=== PATIENT | male | born 1970 | race Caucasian/White ===

== ENCOUNTER 2024-12-21 02:34 | Emergency (ER) | payer BC ==
[2024-12-21] MEDS ORDERED: ONDANSETRON 4 MG/2 ML VIAL ONE (03:23)
[2024-12-21] MEDS ORDERED: MORPHINE 4 MG/ML SYR ONE ×2 (03:24→06:40)
[2024-12-21] MEDS ORDERED: NA CHLORIDE 0.9% 1,000 ML ONE (03:24)
[2024-12-21 04:13] LABS: Absolute Basophils 0.1 K/uL (0-0.5); Absolute Eosinophils 0.7 K/uL (0-0.5); Absolute Monocytes 0.8 K/uL (0.1-1.3); Absolute Neutrophil 4.3 K/uL (1.8-8.0); Hematocrit 41.8 % (39.6-49.0); Hemoglobin 15.3 g/dL (13.6-17.9); Lymphocytes % 25.2 % (15.3-44.8); MCH 32.9 pg (27.0-35.0); MCHC 36.5 g/dL (32.0-36.0); MCV 90.1 fL (80-100); MPV 8.8 fL (7.6-11.3); Monocytes % 9.9 % (3.3-12.3); Neutrophils % 54.9 % (41.7-73.7); Nucleated Red Blood Cells % 0.1 % (0-0); PT Prothrombin Time 11.2 SECONDS (10-13.0); Platelets 177 thou/uL (152-406); Protime INR 0.98; RBC Red Blood Cell Count 4.64 M/uL (4.33-5.43); Red Cell Distribution Width 13.1 % (12.1-15.2)
[2024-12-21 04:38] LABS: Albumin 3.6 g/dL (3.4-5.0); Albumin/Globulin Ratio 1.3 (1.1-1.8); Anion Gap 11.4 mEq/L (5.0-15.0); Bilirubin Direct 0.3 mg/dL (0-0.2); Bilirubin Indirect, Calculated 0.2 mg/dL (0.2-0.8); Bilirubin Total 0.5 mg/dL (0.2-1.0); Globulin 2.8 g/dL (2.3-3.5); Magnesium 2.1 mg/dL (1.6-2.4); Potassium 3.4 mEq/L (3.5-5.1); Protein, Total 6.4 g/dL (6.4-8.2); Thyroid Stimulating Hormone 2.39 uIU/mL (0.358-3.740); Troponin High Sensitivity 9.1 pg/mL (<58.9)
--- NOTE | 2024-12-21 06:24 | RAD REPORT ---
EXAM: XR Chest, 1 View CLINICAL HISTORY: The patient is 54 years old and is Male; CHEST PAIN TECHNIQUE: Frontal view of the chest. COMPARISON: No relevant prior studies available. FINDINGS: Lungs: Unremarkable. No consolidation. Pleural space: Unremarkable. No pneumothorax. Heart: Unremarkable. Mediastinum: Unremarkable. Normal mediastinal contour. Bones/joints: No acute findings. IMPRESSION: No acute findings in the chest. Electronically signed by: Yaakov Aiken MD 12/21/2024 05:45 AM CDT 8 Due to temporary technical issues with the PACS/[employer] reporting system, reports are being tavon d by the in-house radiologist without review as a courtesy to ensure prompt reporting the interpreting radiologist is fully responsible for the content of the report. Transcribed Date/Time: 12/21/2024 6:23 AM
--- NOTE | 2024-12-21 07:00 | RAD REPORT ---
EXAM: CT Angiography Chest, Abdomen and Pelvis With Intravenous Contrast CLINICAL HISTORY: The patient is 54 years old and is Male; Pain. TECHNIQUE: Axial computed tomographic angiography images of the chest, abdomen and pelvis with intr avenous contrast. Sagittal and coronal reformatted images were created and reviewed. This CT exam was performed using one or more of the following dose reduction techniques: automated exposure control, adjustment of the mA and/or kV according to patient size, and/or use of iterative reconstruction technique. MIP reconstructed images were created and reviewed. COMPARISON: XR Chest 12/21/2024. FINDINGS: VASCULATURE: Aorta: No aortic dissection or aneurysm. Pulmonary arteries: No PE identified. Great vessels of aortic arch: No acute findings. No dissection. No arterial occlusion or sign ificant stenosis. Celiac trunk and mesenteric arteries: No acute findings. No occlusion or significant stenosis. Renal arteries: No acute findings. No occlusion or significant stenosis. Iliac arteries: No acute findings. No occlusion or significant stenosis. CHEST: Lungs: Unremarkable. No mass. No consolidation. Pleural space: Unremarkable. No significant effusion. No pneumothorax. Heart: Unremarkable. No cardiomegaly. No significant pericardial effusion. ABDOMEN: Liver: Fatty liver. Gallbladder and bile ducts: Unremarkable. No calcified stones. No ductal dilation. Pancreas: Unremarkable. No ductal dilation. No mass. Spleen: Unremarkable. No splenomegaly. Adrenals: Unremarkable. No mass. Kidneys and ureters: Unremarkable. No hydronephrosis. No solid mass. Stomach and bowel: Wall thickening in the gastric antrum/pylorus. No bowel dilatation or obstru ction. Air-fluid level in the stomach. No findings to suggest colitis or enteritis. PELVIS: Appendix: No findings to suggest acute appendicitis. Bladder: Bladder is full but otherwise unremarkable. Reproductive: Unremarkable as visualized. CHEST, ABDOMEN and PELVIS: Intraperitoneal space: Unremarkable. No significant fluid collection. No free air. Bones/joints: Bilateral L5 spondylolysis. No acute fracture visualized. No dislocation. Soft tissues: Unremarkable. Lymph nodes: No pathologically enlarged lymph nodes. IMPRESSION: 1. No aortic dissection or aneurysm. 2. Wall thickening in the gastric antrum/pylorus. Correlate clinically for PUD/focal gastritis 3. Fatty liver. 4. Additional non-emergent findings as above. Electronically signed by: Martina Alonzo MD 12/21/2024 06:54 AM CDT V2 Due to temporary technical issues with the PACS/[employer] reporting system, reports are being tavon d by the in-house radiologist without review as a courtesy to ensure prompt reporting the interpreting radiologist is fully responsible for the content of the report. Transcribed Date/Time: 12/21/2024 6:59 AM
--- NOTE | 2024-12-21 07:57 | ER ---
Nurse's Notes [facility] Name: Alphonso Valdivia Jr Age: 54 yrs Sex: Male : 1970 Arrival Date: 12/21/2024 Time: 02:34 Bed 7 Private MD: Diagnosis: Acute left shoulder pain, acute musculoskeletal pain Presentation: 12/21 03:02 Chief complaint: Patient states: c/o L upper shoulder pain starting at 1700. al5 Coronavirus screen: At this time, the client does not indicate any symptoms associated with coronavirus-19. Ebola Screen: No symptoms or risks identified at this time. Initial Sepsis Screen: Does the patient meet any 2 criteria? No. Patient's initial sepsis screen is negative. Does the patient have a suspected source of infection? No. Patient's initial sepsis screen is negative. Risk Assessment: Do you want to hurt yourself or someone else? Patient reports no desire to harm self or others. Note took methocarbamol 500 mg at 1700. took naproxen 500 mg and tramadol 50 mg at 0100. Onset of symptoms was December 21, 2024. 03:02 Method Of Arrival: Ambulatory al5 03:02 Acuity: NEAL 3 al5 Triage Assessment: 03:03 General: Appears in no apparent distress. uncomfortable, Behavior is calm, cooperative. al5 Pain: Complains of pain in left posterior upper chest wall. Pain: Pain does not radiate. EENT: No signs and/or symptoms were reported regarding the EENT system. Neuro: Level of Consciousness is awake, alert, obeys commands, Oriented to person, place, time, situation. Cardiovascular: Capillary refill < 3 seconds Patient's skin is warm and dry. Respiratory: Airway is patent Respiratory effort is even, unlabored, Respiratory pattern is regular, symmetrical. GI: No signs and/or symptoms were reported involving the gastrointestinal system. : No signs and/or symptoms were reported regarding the genitourinary system. Derm: Skin is intact, is healthy with good turgor, Skin is pink, warm \T\ dry. normal. Musculoskeletal: Reports pain in left posterior upper chest wall. Historical: - Allergies: 03:04 Cefdinir; al5 - PMHx: 03:04 Hypertensive disorder; Hypercholesterolemia; al5 - PSHx: 03:04 Appendectomy; al5 - Immunization history:: Adult Immunizations up to date. - Infectious Disease History:: Denies. - Social history:: Smoking status: Patient denies any tobacco usage or history of. - Family history:: not pertinent. Screenin:05 [facility] ED Fall Risk Assessment (Adult) History of falling in the last 3 months, al5 including since admission No falls in past 3 months (0 pts) Confusion or Disorientation No (0 pts) Intoxicated or Sedated No (0 pts) Impaired Gait No (0 pts) Mobility Assist Device Used No (0 pt) Altered Elimination No (0 pt) Score/Fall Risk Level 0 - 2 = Low Risk Oriented to surroundings, Maintained a safe environment, Hourly rounding (assess needs \T\ fall precautionary measures) done. Abuse screen: Denies threats or abuse. Denies injuries from another. Nutritional screening: No deficits noted. Tuberculosis screening: No symptoms or risk factors identified. Assessment: 03:05 Reassessment: see triage assessment. al5 04:27 Reassessment: Patient appears in no apparent distress at this time. No changes from vc1 previously documented assessment. Patient and/or family updated on plan of care and expected duration. Pain level reassessed. Patient is alert, oriented x 3, equal unlabored respirations, skin warm/dry/pink. 05:42 Reassessment: Patient appears in no apparent distress at this time. No changes from al5 previously documented assessment. Patient and/or family updated on plan of care and expected duration. Pain level reassessed. Patient is alert, oriented x 3, equal unlabored respirations, skin warm/dry/pink. 08:47 Reassessment: Patient appears in no apparent distress at this time. Patient and/or db family updated on plan of care and expected duration. Pain level reassessed. Patient is alert, oriented x 3, equal unlabored respirations, skin warm/dry/pink. General: Appears in no apparent distress. comfortable, Behavior is calm, cooperative. Neuro: Level of Consciousness is awake, alert, obeys commands, Oriented to person, place, time, situation. Respiratory: Airway is patent Respiratory effort is even, unlabored, Respiratory pattern is regular, symmetrical. Vital Signs: 03:02 BP 183 / 110; Pulse 77; Resp 18; Temp 98.3; Pulse Ox 97% on R/A; Weight 74.84 kg; al5 Height 5 ft. 9 in. ; 04:00 BP 159 / 94; Pulse 74; Resp 14; Pulse Ox 96% ; vc1 05:42 BP 170 / 102; Pulse 65; Resp 14; Pulse Ox 97% ; al5 06:50 BP 161 / 103; Pulse 67; Resp 21; Pulse Ox 98% ; vc1 08:00 BP 170 / 101; Pulse 67; Resp 16; Pulse Ox 98% ; db 03:02 Body Mass Index 24.37 (74.84 kg, 175.26 cm) al5 [place] Coma Score: 07:19 Eye Response: spontaneous(4). Motor Response: obeys commands(6). Verbal Response: sp4 oriented(5). Total: 15. ED Course: 02:40 Patient arrived in ED. gm2 02:56 Remy Ta MD is Attending Physician. sp4 03:03 Triage completed. al5 03:05 Arm band placed on right wrist. Patient placed in the treatment room, in view of staff al5 members, on pulse oximetry. 03:06 Patient has correct armband on for positive identification. Bed in low position. Call al5 light in reach. Side rails up X 1. Provided Education on: plan of care. 03:06 No provider procedures requiring assistance completed. al5 03:09 Kanika Acosta, RN is Primary Nurse. vc1 03:33 Initial lab(s) drawn, by me, sent to lab. Inserted saline lock: 20 gauge in right vc1 forearm, using aseptic technique. Blood collected. Flushed with 10 mL NS. 03:46 XRAY Chest (1 view) In Process Unspecified. EDMS 04:57 CT Aorta for Dissection In Process Unspecified. EDMS 08:00 Client placed on continuous cardiac and pulse oximetry monitoring. NIBP monitoring db applied. residential monitor on. Pulse ox on. NIBP on. Warm blanket given. Pillow given. 08:48 IV discontinued, intact, bleeding controlled, No redness/swelling at site. db Administered Medications: 03:33 Drug: morphine IVP or IV 4 mg IVP once over 4 mins Route: IVP; Infused Over: 4 mins; vc1 Site: right forearm; 05:48 Follow up: Response: No adverse reaction; Marked relief of symptoms vc1 03:33 Drug: Ondansetron IVP 4 mg IVP once; over 2 minutes Route: IVP; Site: right forearm; vc1 05:48 Follow up: Response: No adverse reaction vc1 03:33 Drug: NS 0.9% IV 1000 ml IV at 1 bolus Per protocol; to be given as a bolus over 60 vc1 minutes Route: IV; Rate: 1 bolus; Site: right forearm; 04:30 Follow up: IV Status: Completed infusion; IV Intake: 1000ml vc1 06:43 Drug: morphine IVP or IV 4 mg IVP once over 4 mins Route: IVP; Infused Over: 4 mins; al5 Site: right forearm; 08:48 Follow up: Response: No adverse reaction; Pain is decreased db Medication: 03:05 VIS not applicable for this client. al5 Intake: 04:30 IV: 1000ml; Total: 1000ml. vc1 Outcome: 07:56 Discharge ordered by MD. lai 08:48 Discharged to home ambulatory, with family, db 08:48 Condition: stable 08:48 Discharge instructions given to patient, family, Instructed on discharge instructions, follow up and referral plans. Prescriptions given X 3, 08:49 Patient left the ED. db Signatures: Dispatcher [employer] EDMS Kanika Acosta RN RN vc1 Franny Ramirez RN RN db Potepalov, Sergey, MD MD sp4 Tanja Glover 2 Geri Goldman RN RN al5 Corrections: (The following items were deleted from the chart) 03:05 03:04 Allergies: Cefaclor; al5 al5
--- NOTE | 2024-12-21 07:57 | EDPHYS ---
Physician Documentation [facility] Name: Alphonso Valdivia Jr Age: 54 yrs Sex: Male : 1970 Arrival Date: 12/21/2024 Time: 02:34 Bed 7 Private MD: ED Physician Remy Ta HPI: 12/21 02:56 This 54 yrs old Male presents to ER via Unassigned with complaints of Neck sp4 and Upper Back Pain. 07:19 54-year-old male presents with acute left shoulder pain and posterior back pain.. sp4 Historical: - Allergies: 03:04 Cefdinir; al5 - PMHx: 03:04 Hypertensive disorder; Hypercholesterolemia; al5 - PSHx: 03:04 Appendectomy; al5 - Immunization history:: Adult Immunizations up to date. - Infectious Disease History:: Denies. - Social history:: Smoking status: Patient denies any tobacco usage or history of. - Family history:: not pertinent. ROS: 07:19 Constitutional: Negative for fever, chills, and weight loss, acute left shoulder pain sp4 acute left posterior back pain 07:19 All other systems are negative, Exam: 07:19 Constitutional: This is a well developed, well nourished patient who is awake, alert, sp4 and in no acute distress. Head/Face: Normocephalic, atraumatic. Eyes: Pupils equal round and reactive to light, extra-ocular motions intact. Lids and lashes normal. Conjunctiva and sclera are not injected. Cornea within normal limits. Periorbital areas with no swelling, redness, or edema. ENT: Nares patent. No nasal discharge, no septal abnormalities noted. Tympanic membranes are normal and external auditory canals are clear. Oropharynx with no redness, swelling, or masses, exudates, or evidence of obstruction, uvula midline. Mucous membranes moist. Neck: Trachea midline, no thyromegaly or masses palpated, and no cervical lymphadenopathy. Supple, full range of motion without nuchal rigidity, or vertebral point tenderness. Chest/axilla: Normal chest wall appearance and motion. Nontender with no deformity. No lesions are appreciated. Cardiovascular: Regular rate and rhythm with a normal S1 and S2. No gallops, murmurs, or rubs. Normal PMI, no JVD. No pulse deficits. Respiratory: Lungs have equal breath sounds bilaterally, clear to auscultation and percussion. No rales, rhonchi or wheezes noted. No increased work of breathing, no retractions or nasal flaring. Abdomen/GI: Soft, with normal bowel sounds. No distension or tympany. No guarding or rebound. No evidence of tenderness throughout. Back: No spinal tenderness. No costovertebral tenderness. Skin: Warm, dry with normal turgor. Normal color with no rashes, no lesions, and no evidence of cellulitis. MS/ Extremity: Pulses equal, no cyanosis. Neurovascular intact. Full, normal range of motion. Neuro: Awake and alert, GCS 15, oriented to person, place, time, and situation. Cranial nerves II-XII grossly intact. Motor strength 5/5 in all extremities. Sensory grossly intact. Psych: Awake, alert, with orientation to person, place and time. Behavior, mood, and affect are within normal limits 07:19 ECG was reviewed by the Attending Physician. EKG at 03 07 Vital Signs: 03:02 BP 183 / 110; Pulse 77; Resp 18; Temp 98.3; Pulse Ox 97% on R/A; Weight 74.84 kg; al5 Height 5 ft. 9 in. ; 04:00 BP 159 / 94; Pulse 74; Resp 14; Pulse Ox 96% ; vc1 05:42 BP 170 / 102; Pulse 65; Resp 14; Pulse Ox 97% ; al5 06:50 BP 161 / 103; Pulse 67; Resp 21; Pulse Ox 98% ; vc1 08:00 BP 170 / 101; Pulse 67; Resp 16; Pulse Ox 98% ; db 03:02 Body Mass Index 24.37 (74.84 kg, 175.26 cm) al5 [place] Coma Score: 07:19 Eye Response: spontaneous(4). Motor Response: obeys commands(6). Verbal Response: sp4 oriented(5). Total: 15. MDM: 03:04 Medical Screening Exam initiated sp4 06:07 ED course: EXAM: XR Chest, 1 View CLINICAL HISTORY: The patient is 54 years old and is sp4 Male; CHEST PAIN TECHNIQUE: Frontal view of the chest. COMPARISON: No relevant prior studies available. FINDINGS: Lungs: Unremarkable. No consolidation. Pleural space: Unremarkable. No pneumothorax. Heart: Unremarkable. Mediastinum: Unremarkable. Normal mediastinal contour. Bones/joints: No acute findings. IMPRESSION: No acute findings in the chest. . 07:15 ED course: 1. No aortic dissection or aneurysm. 2. Wall thickening in the gastric sp4 antrum/pylorus. Correlate clinically for PUD/focal gastritis 3. Fatty liver. 4. Additional non-emergent findings as above. Electronically signed by: Martina Alonzo MD 12/21/2024 06:54 AM. ED course: EXAM: XR Chest, 1 View CLINICAL HISTORY: The patient is 54 years old and is Male; CHEST PAIN TECHNIQUE: Frontal view of the chest. COMPARISON: No relevant prior studies available. FINDINGS: Lungs: Unremarkable. No consolidation. Pleural space: Unremarkable. No pneumothorax. Heart: Unremarkable. Mediastinum: Unremarkable. Normal mediastinal contour. Bones/joints: No acute findings. IMPRESSION: No acute findings in the chest. . 07:55 Data reviewed: vital signs, nurses notes, EMS record. ED course: Stable for discharge sp4 home. 12/21 03:03 Order name: Basic Metabolic Panel; Complete Time: 06:06 sp4 12/21 03:03 Order name: CBC with Diff; Complete Time: 06:06 sp4 12/21 03:03 Order name: LFT's; Complete Time: 06:06 sp4 12/21 03:03 Order name: Magnesium; Complete Time: 06:06 sp4 12/21 03:03 Order name: NT PRO-BNP; Complete Time: 06:06 sp4 12/21 03:03 Order name: PT-INR; Complete Time: 06:06 sp4 12/21 03:03 Order name: Troponin HS; Complete Time: 06:06 sp4 12/21 03:04 Order name: TSH; Complete Time: 06:06 sp4 12/21 03:04 Order name: T4 Free; Complete Time: 06:06 sp4 12/21 06:06 Order name: Troponin High Sensitivity; Complete Time: 07:48 sp4 12/21 03:03 Order name: XRAY Chest (1 view); Complete Time: 07:48 sp4 12/21 03:03 Order name: CT Aorta for Dissection; Complete Time: 07:48 sp4 12/21 03:03 Order name: EKG; Complete Time: 03:03 sp4 12/21 03:03 Order name: Cardiac monitoring; Complete Time: 03:33 sp4 12/21 03:03 Order name: EKG - Nurse/Tech; Complete Time: 03:09 sp4 12/21 03:03 Order name: IV Saline Lock; Complete Time: :33 sp4 12/21 03:03 Order name: Labs collected and sent; Complete Time: : sp4 12/21 03:03 Order name: O2 Per Protocol; Complete Time: : sp4 12/21 03:03 Order name: O2 Sat Monitoring; Complete Time: : sp4 EC:07 Rate is 68 beats/min. Rhythm is regular, Normal Sinus Rhythm. QRS [place] is Normal. [place] sp4 interval is normal. QRS interval is prolonged. QT interval is normal. No Q waves. T waves are Normal. No ST changes noted. Clinical impression: No evidence of ischemia. Interpreted by me. Reviewed by me. Administered Medications: 03:33 Drug: morphine IVP or IV 4 mg IVP once over 4 mins Route: IVP; Infused Over: 4 mins; vc1 Site: right forearm; 05:48 Follow up: Response: No adverse reaction; Marked relief of symptoms vc1 03:33 Drug: Ondansetron IVP 4 mg IVP once; over 2 minutes Route: IVP; Site: right forearm; vc1 05:48 Follow up: Response: No adverse reaction vc1 03:33 Drug: NS 0.9% IV 1000 ml IV at 1 bolus Per protocol; to be given as a bolus over 60 vc1 minutes Route: IV; Rate: 1 bolus; Site: right forearm; 04:30 Follow up: IV Status: Completed infusion; IV Intake: 1000ml vc1 06:43 Drug: morphine IVP or IV 4 mg IVP once over 4 mins Route: IVP; Infused Over: 4 mins; al5 Site: right forearm; 08:48 Follow up: Response: No adverse reaction; Pain is decreased db Disposition Summary: 12/21/24 07:56 Discharge Ordered Notes: Location: Home sp4 Problem: new sp4 Symptoms: have improved sp4 Condition: Stable sp4 Diagnosis - Acute left shoulder pain, acute musculoskeletal pain sp4 Followup: sp4 - With: Private Physician - When: 7 - 10 days - Reason: Recheck today's complaints Discharge Instructions: - Discharge Summary Sheet sp4 - Shoulder Pain, [id number] sp4 Forms: - Work release form sp4 - Patient Portal Instructions sp4 Prescriptions: - Ibuprofen 800 mg Oral Tablet - take 1 tablet ORAL route every 8 hours As needed take with food; 30 tablet; sp4 Refills: 0, Product Selection Permitted - Tramadol 50 mg Oral Tablet - take 1 tablet ORAL route every 8 hours as needed; 12 tablet; Refills: 0, sp4 Product Selection Permitted - methocarbamol 750 mg Oral tablet - take 2 tablets ORAL route every 8 hours for 3 days PRN pain; 60 tablet; sp4 Refills: 0, Product Selection Permitted Signatures: Dispatcher [employer] EDMS Kanika Acosta RN RN vc1 Remy Ta MD MD sp4 Geri Goldman RN RN al5 Franny Ramirez RN db Corrections: (The following items were deleted from the chart) 03:03 03:03 BASIC METABOLIC PANEL+C.LAB.BRZ ordered. EDMS EDMS 03:03 03:03 CBC+H.LAB.BRZ ordered. EDMS EDMS 03:03 03:03 HEPATIC FUNCTION+C.LAB.BRZ ordered. EDMS EDMS 03:03 03:03 MAGNESIUM+C.LAB.BRZ ordered. EDMS EDMS 03:03 03:03 PROBNP+C.LAB.BRZ ordered. EDMS EDMS 03:03 03:03 PROTIME (+INR)+COAG.LAB.BRZ ordered. EDMS EDMS 03:03 03:03 Troponin High Sensitivity+C.LAB.BRZ ordered. EDMS EDMS 03:05 03:04 Allergies: Cefaclor; al5 al5 06:06 06:06 Troponin High Sensitivity+C.LAB.BRZ ordered. EDMS EDMS
--- NOTE | 2024-12-21 12:27 | EKG ---
Test Date: 2024-12-21 Test Time: 03:07:30 [employer]: JODY MEASUREMENT RESULTS: Intervals: Rate: 68 [place]: 162 QRSD: 146 QT: 408 QTc: 433 [place]: P: 47 [place]: 162 QRS: -14 T: 39 INTERPRETIVE STATEMENTS: Normal sinus rhythm Right bundle branch block Abnormal ECG Compared to ECG 01/23/2020 13:09:11 Right bundle-branch block now present Electronically Signed On 12-21-24 12:24:57 CDT by Kris Delgado
[2024-12-21 16:21] VITALS: TEMP 98.3
[2024-12-21 16:24] VITALS: O2SAT 98
[2024-12-21 16:25] VITALS: BP 170/101
== END 2024-12-21 08:49 | disposition home or self-care (01) ==
LOC: ER 02:34
DX: M25.512 Pain in left shoulder (principal); M79.18 Myalgia, other site; M54.9 Dorsalgia, unspecified
CPT/HCPCS: 96361; 93005; 85025; 80048; 36415; 83735; 85610; 80076; 84443; 84484 ×2; 84439; 83880; 71275; 74175; 71045; 96375; 96374; 99285; Q9967; J2405; J7030

== ENCOUNTER 2025-01-09 10:49 | Emergency (ER) | payer BC ==
--- NOTE | 2025-01-09 11:13 | ER ---
Nurse's Notes [facility] Name: Alphonso Valdivia Jr Age: 54 yrs Sex: Male : 1970 Arrival Date: 01/09/2025 Time: 10:49 Bed 15 Private MD: Diagnosis: Left arm pain Presentation: 01/09 11:00 Chief complaint: Patient states: he is having continued left chest, left arm and left ap3 back pain for the past three weeks. patient reports the pain has fluctuated between a 7-10 on the pain scale. Coronavirus screen: At this time, the client does not indicate any symptoms associated with coronavirus-19. Ebola Screen: No symptoms or risks identified at this time. Initial Sepsis Screen: Does the patient meet any 2 criteria? No. Patient's initial sepsis screen is negative. Does the patient have a suspected source of infection? No. Patient's initial sepsis screen is negative. Risk Assessment: Do you want to hurt yourself or someone else? Patient reports no desire to harm self or others. Onset of symptoms was December 19, 2024. 11:00 Method Of Arrival: Ambulatory ap3 11:00 Acuity: NEAL 3 ap3 Triage Assessment: 11:02 General: Appears in no apparent distress. Behavior is cooperative, appropriate for age. ap3 Pain: Complains of pain in back, chest and left arm Pain currently is 7 out of 10 on a pain scale. at worst was 10 out of 10 on a pain scale. Neuro: Level of Consciousness is awake, alert, obeys commands, Oriented to person, place, time, situation. Cardiovascular: Patient's skin is warm and dry. Respiratory: Airway is patent Respiratory effort is even, unlabored, Respiratory pattern is regular, symmetrical. Historical: - Allergies: 11:02 Cefdinir; ap3 - PMHx: 11:02 Hypercholesterolemia; Hypertensive disorder; ap3 - PSHx: 11:02 Appendectomy; ap3 - Immunization history:: Client reports having NOT received the Covid vaccine. - Infectious Disease History:: Denies. - Social history:: Smoking status: Patient denies any tobacco usage or history of. Patient uses alcohol, occasionally. Screenin:03 [facility] ED Fall Risk Assessment (Adult) History of falling in the last 3 months, ap3 including since admission No falls in past 3 months (0 pts) Confusion or Disorientation No (0 pts) Intoxicated or Sedated No (0 pts) Impaired Gait No (0 pts) Mobility Assist Device Used No (0 pt) Altered Elimination No (0 pt) Score/Fall Risk Level 0 - 2 = Low Risk Oriented to surroundings, Maintained a safe environment, Educated pt \T\ family on fall prevention, incl call for assistance when getting out of bed, Assessed \T\ reinforced patient's understanding of fall precautions, Hourly rounding (assess needs \T\ fall precautionary measures) done, Used ambulatory aids as needed (educated on \T\ assisted with). Abuse screen: Denies threats or abuse. Nutritional screening: No deficits noted. Tuberculosis screening: No symptoms or risk factors identified. Vital Signs: 11:00 BP 177 / 108; Pulse 80; Resp 17; Temp 98.5(O); Pulse Ox 98% on R/A; Weight 74.84 kg; ap3 Height 5 ft. 9 in. ; Pain 7/10; 11:00 Body Mass Index 24.37 (74.84 kg, 175.26 cm) ap3 11:00 Pain Scale: Adult ap3 ED Course: 10:51 Patient arrived in ED. im 10:53 Gabi Solorzano MD is Attending Physician. sp3 10:56 Sulma Al, SNEHAL is Primary Nurse. ld1 11:02 Triage completed. ap3 11:03 Patient has correct armband on for positive identification. Placed in gown. Bed in low ap3 position. Call light in reach. Client placed on continuous cardiac and pulse oximetry monitoring. NIBP monitoring applied. campus monitor on. Pulse ox on. NIBP on. 11:04 Arm band placed on right wrist. ap3 11:04 Patient maintains SpO2 saturation greater than 95% on room air. ap3 11:23 No provider procedures requiring assistance completed. Patient did not have IV access ld1 during this emergency room visit. Administered Medications: No medications were administered Medication: 11:24 VIS not applicable for this client. ld1 Outcome: 11:12 Discharge ordered by . sp3 11:23 Discharged to home ambulatory, ld1 11:23 Condition: stable 11:23 Discharge instructions given to patient, Instructed on discharge instructions, follow up and referral plans. Demonstrated understanding of instructions, follow-up care, 11:24 Patient left the ED. ld1 Signatures: Geri Hussein, RN RN ap3 Sulma Al RN RN ld1 Gabi Solorzano MD MD sp3 Heydi Santos
--- NOTE | 2025-01-09 11:13 | EDPHYS ---
Physician Documentation [facility] Name: Alphonso Valdivia Jr Age: 54 yrs Sex: Male : 1970 Arrival Date: 01/09/2025 Time: 10:49 Bed 15 Private MD: ED Physician Gabi Solorzano HPI: 01/09 11:00 This 54 yrs old Male presents to ER via Unassigned with complaints of Arm Pain, sp3 Shoulder Pain, Chest Pain. 11:00 54-year-old male with history of ongoing pain and workup of left-sided neck and left sp3 upper extremity pain. Patient was seen here several weeks ago and had a complete workup including CT scan of the chest for aortic dissection and full cardiac workup. Since then patient has seen pain management where they have done injections into his neck and already has appointment set up for electromyelogram's of the left upper extremity. Patient presents here for continued pain without exacerbation in search of "hoping that you will can fix it". He denies any chest pain, back pain, abdominal pain, nausea, vomiting, diarrhea, shortness of breath, fever, loss of motor function, or any other signs or symptoms on ROS at this time.. Historical: - Allergies: 11:02 Cefdinir; ap3 - PMHx: 11:02 Hypercholesterolemia; Hypertensive disorder; ap3 - PSHx: 11:02 Appendectomy; ap3 - Immunization history:: Client reports having NOT received the Covid vaccine. - Infectious Disease History:: Denies. - Social history:: Smoking status: Patient denies any tobacco usage or history of. Patient uses alcohol, occasionally. ROS: 11:01 Constitutional: Negative for fever, chills, and weight loss, Eyes: Negative for injury, sp3 pain, redness, and discharge, ENT: Negative for injury, pain, and discharge, Neck: Negative for injury, pain, and swelling, Cardiovascular: Negative for chest pain, palpitations, and edema, Respiratory: Negative for shortness of breath, cough, wheezing, and pleuritic chest pain, Abdomen/GI: Negative for abdominal pain, nausea, vomiting, diarrhea, and constipation, Back: Negative for injury and pain, Skin: Negative for injury, rash, and discoloration, Neuro: Negative for headache, weakness, numbness, tingling, and seizure, Psych: Negative for depression, anxiety, suicide ideation, homicidal ideation, and hallucinations, Allergy/Immunology: Negative for hives, rash, and allergies, Endocrine: Negative for neck swelling, polydipsia, polyuria, polyphagia, and marked weight changes, Hematologic/Lymphatic: Negative for swollen nodes, abnormal bleeding, and unusual bruising, 11:01 All other systems are negative, Exam: 11:01 Constitutional: This is a well developed, well nourished patient who is awake, alert, sp3 and in no acute distress. Head/Face: Normocephalic, atraumatic. Eyes: Pupils equal round and reactive to light, extra-ocular motions intact. Lids and lashes normal. Conjunctiva and sclera are non-icteric and not injected. Cornea within normal limits. Periorbital areas with no swelling, redness, or edema. Neck: Trachea midline, no thyromegaly or masses palpated, and no cervical lymphadenopathy. Supple, full range of motion without nuchal rigidity, or vertebral point tenderness. No Meningismus. Chest/axilla: Normal chest wall appearance and motion. Nontender with no deformity. No lesions are appreciated. Cardiovascular: Regular rate and rhythm with a normal S1 and S2. No gallops, murmurs, or rubs. Normal PMI, no JVD. No pulse deficits. Respiratory: Lungs have equal breath sounds bilaterally, clear to auscultation and percussion. No rales, rhonchi or wheezes noted. No increased work of breathing, no retractions or nasal flaring. Abdomen/GI: Soft, non-tender, with normal bowel sounds. No distension or tympany. No guarding or rebound. No evidence of tenderness throughout. Back: No spinal tenderness. No costovertebral tenderness. Full range of motion. Skin: Warm, dry with normal turgor. Normal color with no rashes, no lesions, and no evidence of cellulitis. Neuro: Awake and alert, GCS 15, oriented to person, place, time, and situation. Cranial nerves II-XII grossly intact. Motor strength 5/5 in all extremities. Sensory grossly intact. Cerebellar exam normal. Normal gait. Psych: Awake, alert, with orientation to person, place and time. Behavior, mood, and affect are within normal limits. 11:01 Musculoskeletal/extremity: Extremity exam neurovascularly normal. Patient has pain to palpation of the musculature the biceps and forearm. No other abnormality noted.. 11:12 ECG was reviewed by the Attending Physician. EKG demonstrates right bundle branch block sp3 with a heart rate of 77 nonspecific diffuse changes without evidence of acute ischemia. EKG is unchanged from prior dated December 21, 2024. Vital Signs: 11:00 BP 177 / 108; Pulse 80; Resp 17; Temp 98.5(O); Pulse Ox 98% on R/A; Weight 74.84 kg; ap3 Height 5 ft. 9 in. ; Pain 710; 11:00 Body Mass Index 24.37 (74.84 kg, 175.26 cm) ap3 11:00 Pain Scale: Adult ap3 MDM: 10:54 Medical Screening Exam initiated sp3 11:02 Data reviewed: vital signs, nurses notes, old medical records, EKG. ED course: I have sp3 advised patient there are no further interventions that we need to do any emergency department. Will obtain EKG to ensure no cardiac etiology. Patient is already getting worked up and has had multiple evaluations. Vital signs are normal. Patient is already taking hydrocodone and tramadol and baclofen managed by pain management. Already has a neurology appointment as well. We will safely discharge him home after EKG is reviewed.. 01/09 10:59 Order name: EKG; Complete Time: 11:00 sp3 01/09 10:59 Order name: EKG - Nurse/Tech; Complete Time: 11:08 sp3 Administered Medications: No medications were administered Disposition Summary: 01/09/25 11:12 Discharge Ordered Notes: Location: Home sp3 Condition: Stable sp3 Diagnosis - Left arm pain sp3 Followup: sp3 - With: Private Physician - When: Upon discharge from the Emergency Department - Reason: Continuance of care Discharge Instructions: - Discharge Summary Sheet sp3 - Chronic Pain, Adult sp3 Forms: - Medication Reconciliation Form sp3 - Antibiotic Education sp3 - Prescription Opioid Use sp3 - Patient Portal Instructions sp3 - Leadership Thank You Letter sp3 Signatures: Geri Hussein RN RN ap3 Gabi Solorzano MD MD sp3
[2025-01-09 11:35] VITALS: BP 177/108; TEMP 98.5; O2SAT 98
--- NOTE | 2025-01-10 10:57 | EKG ---
Test Date: 2025-01-09 Test Time: 11:05:52 [employer]: Bruno VIDES MEASUREMENT RESULTS: Intervals: Rate: 77 [place]: 146 QRSD: 134 QT: 384 QTc: 434 [place]: P: 54 [place]: 146 QRS: -48 T: 26 INTERPRETIVE STATEMENTS: Normal sinus rhythm Right bundle branch block Left anterior fascicular block Bifascicular block Abnormal ECG Compared to ECG 12/21/2024 03:07:30 Left anterior fascicular block now present Bifascicular block now present Electronically Signed On 01-10-25 10:55:13 CDT by Kris Delgado
== END 2025-01-09 11:24 | disposition home or self-care (01) ==
LOC: ER 10:49
DX: M79.602 Pain in left arm (principal); R07.9 Chest pain, unspecified; I10 Essential (primary) hypertension
CPT/HCPCS: 93005; 99284